=== PATIENT | female | born 1950 | race Caucasian/White ===

== ENCOUNTER 2016-06-12 10:13 | Outpatient (CLI) | payer MEDICARE, OTHER | END 2016-06-12 10:14 | disposition home or self-care (01) | DX: I48.91 Unspecified atrial fibrillation (principal); Z79.01 Long term (current) use of anticoagulants ==

== ENCOUNTER 2016-06-18 13:19 | Outpatient (CLI) | payer MEDICARE, OTHER | END 2016-06-18 13:20 | disposition home or self-care (01) | DX: Z79.01 Long term (current) use of anticoagulants (principal); I48.91 Unspecified atrial fibrillation ==

== ENCOUNTER 2016-07-15 08:00 | Outpatient (CLI) | payer MEDICARE, OTHER | END 2016-07-15 08:01 | disposition home or self-care (01) | DX: Z79.01 Long term (current) use of anticoagulants (principal); E11.9 Type 2 diabetes mellitus without complications; I10 Essential (primary) hypertension; I48.2 Chronic atrial fibrillation; I11.0 Hypertensive heart disease with heart failure; I48.91 Unspecified atrial fibrillation ==

== ENCOUNTER 2016-07-16 14:12 | Outpatient (CLI) | payer MEDICARE, OTHER | END 2016-07-16 14:13 | disposition home or self-care (01) | DX: I11.0 Hypertensive heart disease with heart failure (principal); I48.2 Chronic atrial fibrillation; E11.9 Type 2 diabetes mellitus without complications; Z79.01 Long term (current) use of anticoagulants ==

== ENCOUNTER 2016-07-29 13:29 | Outpatient (CLI) | payer MEDICARE, OTHER | END 2016-07-29 13:30 | disposition home or self-care (01) | DX: I48.91 Unspecified atrial fibrillation (principal); Z79.01 Long term (current) use of anticoagulants ==

== ENCOUNTER 2016-08-12 13:20 | Outpatient (CLI) | payer MEDICARE, OTHER | END 2016-08-12 13:21 | disposition home or self-care (01) | DX: I48.91 Unspecified atrial fibrillation (principal); Z79.01 Long term (current) use of anticoagulants ==

== ENCOUNTER 2016-08-19 13:28 | Outpatient (CLI) | payer MEDICARE, OTHER | END 2016-08-19 13:29 | disposition home or self-care (01) | DX: Z79.01 Long term (current) use of anticoagulants (principal); I48.91 Unspecified atrial fibrillation ==

== ENCOUNTER 2016-08-22 14:20 | Outpatient (CLI) | payer MEDICARE, OTHER | END 2016-08-22 14:21 | disposition home or self-care (01) | DX: Z79.01 Long term (current) use of anticoagulants (principal); I48.91 Unspecified atrial fibrillation ==

== ENCOUNTER 2016-08-26 08:00 | Outpatient (CLI) | payer MEDICARE, OTHER | END 2016-08-26 23:59 | disposition home or self-care (01) | DX: Z79.01 Long term (current) use of anticoagulants (principal); I48.91 Unspecified atrial fibrillation ==

== ENCOUNTER 2016-09-03 10:49 | Outpatient (CLI) | payer MEDICARE, OTHER | END 2016-09-03 10:50 | disposition home or self-care (01) | DX: I48.91 Unspecified atrial fibrillation (principal); Z79.01 Long term (current) use of anticoagulants ==

== ENCOUNTER 2016-09-09 08:00 | Outpatient (CLI) | payer MEDICARE, OTHER | END 2016-09-09 08:01 | disposition home or self-care (01) | DX: Z79.01 Long term (current) use of anticoagulants (principal); I48.91 Unspecified atrial fibrillation ==

== ENCOUNTER 2016-09-26 14:20 | Outpatient (CLI) | payer MEDICARE, OTHER | END 2016-09-26 14:21 | disposition home or self-care (01) | DX: Z79.01 Long term (current) use of anticoagulants (principal); I48.91 Unspecified atrial fibrillation ==

== ENCOUNTER 2016-10-09 14:02 | Outpatient (CLI) | payer MEDICARE, OTHER | END 2016-10-09 14:03 | disposition home or self-care (01) | DX: I48.91 Unspecified atrial fibrillation (principal); Z79.01 Long term (current) use of anticoagulants ==

== ENCOUNTER 2016-10-22 09:35 | Outpatient (CLI) | payer MEDICARE, OTHER | END 2016-10-22 09:36 | disposition home or self-care (01) | LOC: LAB.F 09:35 | PROVIDERS: ATTEND Nurse Practitioner Family | DX: I48.91 Unspecified atrial fibrillation (principal); Z79.01 Long term (current) use of anticoagulants | CPT/HCPCS: 85610 ==

== ENCOUNTER 2016-11-06 15:15 | Outpatient (CLI) | payer MEDICARE, OTHER ==
[2016-11-06 18:11] LABS: CALCIUM 9.4 mg/dL (8.5-10.3); CREATININE 0.8 mg/dL (0.4-1.0); POTASSIUM 4.4 mmol/L (3.5-5.0)
[2016-11-06 18:31] LABS: HEMOGLOBIN A1C 1.04 g/dL
== END 2016-11-06 15:16 | disposition home or self-care (01) ==
LOC: LAB.F 15:15
PROVIDERS: ATTEND Nurse Practitioner Family
DX: I48.91 Unspecified atrial fibrillation (principal); E11.9 Type 2 diabetes mellitus without complications; Z13.0 Encounter for screening for diseases of the blood and blood-forming organs and certain disorders involving the immune mechanism; R25.2 Cramp and spasm; Z79.01 Long term (current) use of anticoagulants
CPT/HCPCS: 36415; 80048; 82043; 82728; 83036; 85610

== ENCOUNTER 2016-12-03 10:47 | Outpatient (CLI) | payer MEDICARE, OTHER | END 2016-12-03 10:48 | disposition home or self-care (01) | LOC: LAB.F 10:47 | PROVIDERS: ATTEND Nurse Practitioner Family | DX: I48.91 Unspecified atrial fibrillation (principal); Z79.01 Long term (current) use of anticoagulants | CPT/HCPCS: 85610 ==

== ENCOUNTER 2016-12-31 15:41 | Outpatient (CLI) | payer MEDICARE, OTHER | END 2016-12-31 15:42 | disposition home or self-care (01) | LOC: LAB.F 15:41 | PROVIDERS: ATTEND Nurse Practitioner Family | DX: I48.91 Unspecified atrial fibrillation (principal); Z79.01 Long term (current) use of anticoagulants | CPT/HCPCS: 85610 ==

== ENCOUNTER 2017-02-06 13:47 | Outpatient (CLI) | payer MEDICARE, OTHER ==
[2017-02-06 18:20] LABS: ALBUMIN/GLOBULIN RATIO 1.1 (1.0-2.2); BILIRUBIN,TOTAL 0.7 mg/dL (0.2-1.0); CALCIUM 9.3 mg/dL (8.5-10.3); POTASSIUM 4.1 mmol/L (3.5-5.0); TOTAL PROTEIN 7.2 g/dL (6.7-8.2)
[2017-02-06 18:39] LABS: HEMOGLOBIN A1C 1.04 g/dL
== END 2017-02-06 13:48 | disposition home or self-care (01) ==
LOC: LAB.F 13:47
PROVIDERS: ATTEND Nurse Practitioner Family
DX: I48.91 Unspecified atrial fibrillation (principal); Z79.01 Long term (current) use of anticoagulants; E11.9 Type 2 diabetes mellitus without complications; I10 Essential (primary) hypertension
CPT/HCPCS: 36415; 80053; 83036; 85610

== ENCOUNTER 2017-02-07 19:54 | Emergency (ER) | payer MEDICARE, OTHER ==
[2017-02-07] MEDS: ATROPINE ABBOJECT 0.5 MG/5 ML SYRINGE IVP STA (20:04)
[2017-02-07] MEDS ORDERED: SODIUM CHLORIDE FLUSH 0.9% 10 ML SYRINGE IVP ONE (20:06)
[2017-02-07] MEDS ORDERED: FUROSEMIDE 20 MG TABLET ONE (20:26)
[2017-02-07] MEDS ORDERED: EPINEPHrine 1 MG/1 ML 30 ML MDV ONE (20:27)
[2017-02-07] MEDS ORDERED: FUROSEMIDE 40 MG/4 ML VIAL ONE (20:27)
--- NOTE | 2017-02-07 20:28 | ED Physician Documentation ---
PD HPI DYSPNEA - Stated complaint Stated Complaint: SOA/CHEST PX - Chief complaint Chief Complaint: Cardiac - History obtained from History obtained from: Family - History of Present Illness Timing - onset: How many hours ago (just the past few hours), Today Timing - onset during: Light activity (The patient's granddaughter reports that the patient was having some trouble breathing starting late afternoon and worsened during and after dinner. Coming from the restaurant to the car from dinner, the patient had significant dyspnea and asked to come to the hospital. On arrival here the patient just made it in to the triage area and then was brought by wheelchair to the room and just made it on the gurney. She was having marked respiratory distress and also was dusky colored with central and peripheral cyanosis.) Timing - details: Abrupt onset, Still present Improved by: No: Rest Associated symptoms: No: Chest pain / discomfort Similar symptoms before: Diagnosis (flash pulmonary edema and history of CHF.) Recently seen: Emergency Dept, Admitted (earlier in the year with pulmonary edema and marked respiratory failure.) Review of Systems Unable to obtain: Unresponsive PD PAST MEDICAL HISTORY - Past Medical History Cardiovascular: Hypertension, High cholesterol, Atrial fibrillation, Other Respiratory: Pneumonia, Shortness of breath Endocrine/Autoimmune: Type 2 diabetes GI: None : None Psych: None Musculoskeletal: Osteoarthritis, Other Derm: None - Past Surgical History Past Surgical History: Yes General: Cholecystectomy, Appendectomy 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, Oophrectomy - Present Medications Home Medications: Ambulatory Orders Medication Instructions Recorded Confirmed Cholecalciferol (Vitamin D3) 2,000 units PO DAILY 02/03/14 01/22/17 [Vitamin D3] Diltiazem HCl [Diltiazem 24Hr ER] 240 mg PO BID 02/03/14 01/22/17 Insulin Glargine [Lantus Solostar] 45 units SQ QPM 02/03/14 01/22/17 Lisinopril 40 mg PO DAILY 02/03/14 01/22/17 Metformin HCl 1,000 mg PO BID 02/03/14 01/22/17 Warfarin [Coumadin] 10 mg PO MOWEFR 02/03/14 01/22/17 oxyCODONE [Roxicodone] 5 - 10 mg PO Q6H PRN 02/03/14 01/22/17 Pramipexole Di-HCl [Pramipexole 0.25 mg PO DAILY 04/30/16 01/22/17 Dihydrochloride] Warfarin Sodium 8 mg PO SUTUTHSA 04/30/16 01/22/17 Torsemide 20 mg PO DAILY 01/22/17 01/22/17 Torsemide 40 mg PO DAILY 01/22/17 01/22/17 - Allergies Allergies/Adverse Reactions: Allergies Allergy/AdvReac Type Severity Reaction Status Date / Time No Known Drug Allergies Allergy Verified 02/03/14 11:04 - Living Situation Living Situation: reports: Alone Living Arrangement: reports: At home - Social History Does the pt smoke?: No Smoking Status: Never smoker Does the pt drink ETOH?: No Does the pt have substance abuse?: No - Family History Family history: reports: Non contributory - Immunizations Immunizations are current?: Yes PD ED PE NORMAL - General General: Other (On my first exam (moments after her arrival to the room) the patient is not responsive, without respirations and no palpable pulse. CPR is started promptly. Further exam is interlaced with rescuscitative efforts. ). No : Alert and oriented X 3 - HEENT HEENT: Atraumatic, Other (very dusky color with purple lips and extremities. ) - Neck Neck: Other (JVD noted lying flat) - Cardiac Cardiac: No: RRR (no palpable pulse and no heart sounds heard initial exam. ) - Respiratory Respiratory: Other (no spontaneous respirations, BVM breaths have coarse/wet sounds diffusely. ) - Abdomen Abdomen: Non distended - Derm Derm: No: Normal color (cyanotic) - Extremities Extremities: Other (3+ edema in both legs) - Neuro Neuro: Other (unresponsive) GCS Score: 3 Results - Vitals Vitals: Oxygen O2 Source Room air - Labs Labs: Laboratory Tests 02/07/17 02/07/17 02/07/17 20:15 20:16 20:16 WBC 11.3 H RBC 4.81 Hgb 13.4 Hct 42.9 MCV 89.2 MCH 27.8 MCHC 31.2 L RDW 16.2 H Plt Count 266 MPV 8.4 Neut # 7.3 H Lymph # 3.1 [place] # 0.6 Eos # 0.3 Baso # 0.1 Absolute Nucleated RBC 0.00 Nucleated RBCs 0.0 Sodium 139 Potassium 4.2 Chloride 98 L Carbon Dioxide 24 Anion Gap 17.0 H BUN 28 H Creatinine 1.0 Estimated GFR (MDRD) 55 L Glucose 327 H POC Whole Bld Glucose 296 H Calcium 9.3 Magnesium 2.2 Total Bilirubin 0.9 AST 27 ALT 22 Alkaline Phosphatase 82 Troponin I B-Natriuretic Peptide Total Protein 8.0 Albumin 4.1 Globulin 3.9 Albumin/Globulin Ratio 1.1 Lipase 40 02/07/17 02/07/17 20:16 20:16 WBC RBC Hgb Hct MCV MCH MCHC RDW Plt Count MPV Neut # Lymph # [place] # Eos # Baso # Absolute Nucleated RBC Nucleated RBCs Sodium Potassium Chloride Carbon Dioxide Anion Gap BUN Creatinine Estimated GFR (MDRD) Glucose POC Whole Bld Glucose Calcium Magnesium Total Bilirubin AST ALT Alkaline Phosphatase Troponin I < 0.04 B-Natriuretic Peptide 352 H Total Protein Albumin Globulin Albumin/Globulin Ratio Lipase - Rads (name of study) chest Radiology: Prelim report reviewed, Discussed with rads, EMP read contemporaneously (Tip of ETT is at andree pointing left; will pull it back 2-3 cm. ) Procedures - Intubation Provider: Emergency physician Medications: Other (no meds needed) Blade: Glidescope Tube: Size-enter number (7.5), Cuffed, Marked at lips-enter cm (25) Confirmation: Direct visualization, Bilateral breath sounds, No abdominal breath sound, End tidal CO2, Chest xray Complications: Other (tip at andree and was pulled back) PD MEDICAL DECISION MAKING - ED course Complexity details: reviewed old records (She had had an episode of flash pulmonary edema early in the year associated with hypoxia and near respiratory failure. She was able to improve readily however.), reviewed results, considered differential, d/w family, other (The patient came into the emergency room and near respiratory failure. She has markedly cyanotic and extremities and face. She did make it to the gurney in the room. At that point prompt assessment revealed that she had stopped breathing. There is no palpable pulse. CPR was started and she was placed on a heart monitor which showed agonal rhythm with a rate of 20-30 which was revealed during compression personnel change. Concurrent with initial CPR., We also initiated bag valve mask respirations until an endotracheal tube could be placed. IV was initiated peripherally by nursing and I also placed an intraosseous in the left lower leg. She was given ACLS medications. After approximately 20 minutes of resuscitation, we did get back a pulse and heart rhythm with low blood pressure but still palpable. Epinephrine drip was initiated. However heart rate did slow down to agonal rhythm with bradycardia of approximately 20-30. Resuscitative measures were initiated again and this time were unsuccessful. Several medication attempts were tried. At the point of stopping with resuscitation, a review of the heart rhythm was asystole with agonal beats no palpable pulse and a bedside ultrasound showing cardiac standstill. At that point being about an hour into the resuscitation, further attempts were stopped. Also note that during the resuscitation, a Fisher catheter was placed and Lasix was given and she did have a fairly significant output from the Fisher. The initial endotracheal tube position on chest x-ray showed it to be at the andree and it was pulled back 2-1/2 cm. Initial labs were reviewed as well and did not show any significant abnormality that was correctable to assist in the resuscitation. Family members were apprised of the outcome.) - Critical Care Time(min): 50 Time Includes: Direct patient care, Reassess patient, Coordinate care, Family consult for tx dec, See progress note Data interpretation: Pulse ox, CXR Procedures excluded from critical care time: Intraosseous, Intubation Departure - Departure Disposition: 20 Clinical Impression: Flash pulmonary edema, Hypoxia, Cardiopulmonary arrest Condition: Critical
[2017-02-07 20:34] LABS: BASOPHILS # (AUTO) 0.1 10^3/uL (0.0-0.1); BASOPHILS % (AUTO) 0.7 %; EOSINOPHILS # (AUTO) 0.3 10^3/uL (0.0-0.7); EOSINOPHILS % (AUTO) 2.4 %; HCT - HEMATOCRIT 42.9 % (37.0-47.0); HGB - HEMOGLOBIN 13.4 g/dL (12.0-16.0); LYMPHOCYTES # (AUTO) 3.1 10^3/uL (1.5-3.5); LYMPHOCYTES % (AUTO) 27.4 %; MEAN CORPUSCULAR HEMOGLOBIN 27.8 pg (27.0-31.0); MEAN CORPUSCULAR HGB CONC 31.2 g/dL (32.0-36.0); MEAN CORPUSCULAR VOLUME 89.2 fL (81.0-99.0); MEAN PLATELET VOLUME 8.4 fL (7.9-10.8); MONOCYTES # (AUTO) 0.6 10^3/uL (0.0-1.0); MONOCYTES % (AUTO) 5.5 %; NEUTROPHILS # (AUTO) 7.3 10^3/uL (1.5-6.6); RED BLOOD COUNT 4.81 10^6/uL (4.20-5.40); RED CELL DISTRIBUTION WIDTH 16.2 % (12.0-15.0); UNCORRECTED WHITE BLOOD COUNT 11.3 x10^3/uL; WHITE BLOOD COUNT 11.3 x10^3/uL (4.8-10.8)
[2017-02-07] MEDS: EPINEPHrine 4 MG in DEXTROSE 5% 246 ML IVP STA (20:40)
[2017-02-07 20:47] LABS: ALBUMIN/GLOBULIN RATIO 1.1 (1.0-2.2); BILIRUBIN,TOTAL 0.9 mg/dL (0.2-1.0); CALCIUM 9.3 mg/dL (8.5-10.3); MAGNESIUM 2.2 mg/dL (1.7-2.8); POTASSIUM 4.2 mmol/L (3.5-5.0)
--- NOTE | 2017-02-07 20:50 | XRAY Report ---
EXAM: CHEST RADIOGRAPHY EXAM DATE: 02/07/2017 08:35 PM. CLINICAL HISTORY: Dyspnea. COMPARISON: Chest 04/29/2016. TECHNIQUE: 1 view. FINDINGS: Tip of the endotracheal tube enters the left mainstem bronchus, abnormal position. Recommen d pulling this back by 3.5 cm. Moderate diffuse bilateral airspace disease, right worse than left, co ncerning for pulmonary edema. Pneumonia not excluded. No pleural effusion or pneumothorax seen. Heart size within normal limits for technique. IMPRESSION: Tip of the endotracheal tube enters the left mainstem bronchus, abnormal position. Recomm end pulling this back by 3.5 cm. Moderate diffuse bilateral airspace disease, right worse than left, concerning for pulmonary edema. Pneumonia not excluded. RADIA The above critical findings were discussed with Dr. Durbin by Dr. Bea Barber at 20:46 hrs on 02/07/17. Referring Provider Line: [phone] SITE ID: [id number]
[2017-02-07] MEDS: EPINEPHrine ABBOJECT 1 MG/10 ML SYRINGE IVP STA (20:53)
[2017-02-07] MEDS: SODIUM BICARBONATE ABBOJECT 50 MEQ/50 ML SYRINGE IVP STA (20:55)
[2017-02-07] MEDS ORDERED: SODIUM BICARBONATE ABBOJECT 50 MEQ/50 ML SYRINGE ONE (20:58)
[2017-02-07 23:06] VITALS: BP 61/39
== END 2017-02-07 21:00 | disposition expired ==
LOC: ED 19:54
DX: J81.1 Chronic pulmonary edema (principal); R09.02 Hypoxemia; I46.9 Cardiac arrest, cause unspecified; I10 Essential (primary) hypertension; E11.8 Type 2 diabetes mellitus with unspecified complications; E78.00 Pure hypercholesterolemia, unspecified; I48.91 Unspecified atrial fibrillation; Z79.01 Long term (current) use of anticoagulants; Z96.649 Presence of unspecified artificial hip joint; Z79.4 Long term (current) use of insulin
CPT/HCPCS: 36415; 51702; 71010; 80053; 83690; 83735; 83880; 84484; 85025; 92950; 96374; 96375; 96376; 99282; 99291